=== PATIENT | male | born 1970 | race Caucasian/White ===

== ENCOUNTER 2017-12-23 08:06 | Inpatient (IN) | payer OTHER ==
[2017-12-23 10:49] VITALS: BMI 44.7
[2017-12-23] MEDS ORDERED: HEPARIN SODIUM,PORCINE 5,000 UNIT/ML 1 ML VIAL IV PRN (11:10)
[2017-12-23] MEDS ORDERED: HEPARIN SODIUM,PORCINE 5,000 UNIT/ML 1 ML VIAL IV ONE (11:10)
[2017-12-23 11:29] LABS: Basophils % (A) 0 %; Eosinophils # (A) 0.1 k/uL (0-0.7); Eosinophils % (A) 1 %; HCT 51.7 % (39.0-53.0); HGB 16.2 gm/dL (13.0-17.5); Lymphocytes # (A) 2.5 k/uL (1.0-4.8); Lymphocytes % (A) 24 %; MCH 27.7 pg (25.0-35.0); MCHC 31.4 g/dL (31.0-37.0); MCV 88.2 fL (80.0-100.0); Mean Platelet Volume 7.5; Monocytes # (A) 0.6 k/uL (0-1.0); Monocytes % (A) 5 %; Neutrophils % (A) 68 %; Platelet Count 250 k/uL (150-450); RBC 5.86 m/uL (4.30-5.90); RDW 13.9 % (11.5-15.5); WBC 10.3 k/uL (3.8-10.6)
[2017-12-23 11:45] LABS: INR 1.1 (<1.2); Partial Thromboplastin Time 38.9 sec (22.0-30.0); Prothrombin Time 10.4 sec (9.0-12.0)
[2017-12-23] MEDS ORDERED: ALPRAZolam 0.25 MG TAB PO PRN (12:13)
--- NOTE | 2017-12-23 13:26 | CONS ---
CONSULTATION This is a 47-year-old gentleman who sees Dr. Julio Ruiz as an outpatient but has not been consistent. He presented to [facility], brought in by his girlfriend because of having discomfort in the chest while they were having sex last night. After arrival he was completely pain-free. Apparently he had some exertional chest discomfort a couple of days ago when he was walking to the mailbox. He leads a reasonably active lifestyle and he tells me that he has been under stress; for the past 5 days on and off he has been having some nondescript sharp pains that come and go, not consistent related to physical activity. However, last night's pain seemed to persist, so his girlfriend brought him to the emergency room, but he has not had any recurrence of pain. He is comfortable resting at the time of my evaluation. PAST MEDICAL HISTORY: He has no history of any hypertension, diabetes, or any other major medical problems. He does not have any history of prior surgeries. MEDICATIONS: None. ALLERGIES: NO KNOWN DRUG ALLERGIES. SOCIAL HISTORY: Patient smokes marijuana regularly but does not smoke cigarettes and does not consume alcohol. PHYSICAL EXAMINATION: Blood pressure is 130/78. Pulse rate is 72 per minute, regular. HEENT: Unremarkable. Fundus was not examined by me. NECK: Supple. There is no JVD. I do not hear a carotid bruit. There is no thyromegaly. Heart exam reveals S1, S2 heard normally without a rub, murmur or gallop. Lungs are clear. ABDOMEN: Soft, nontender. Lower extremities reveal palpable pulses. No edema. Central nervous system is normal. EKG was performed at [facility] and also another one here. Both of these are unremarkable. Initial troponin at [facility] was 0.09, a repeat 1.1, and now again here in our lab it is 0.569. IMPRESSION: 1. Chest pain syndrome; cannot exclude this being angina. However, patient is pain- free and comfortable. 2. History of marijuana abuse. 3. Obesity. RECOMMENDATIONS: I am recommending that we will perform additional troponins today, continue IV heparin, beta lilia, aspirin and also perform an echocardiogram today. I am recommending a fasting lipid profile as well. We will initiate him on aspirin, atorvastatin and beta lilia. Based on clinical course, I will make further recommendations. Patient may have coronary angiography or a stress test, depending on clinical course. I discussed my thoughts in detail with the patient, his sister, mother and girlfriend. We will observe him very closely. Thank you very much for the consult. VERÓNICA / ELSIE: [id number] /
[2017-12-23] MEDS: SODIUM CHLORIDE 0.9% 1,000 ML IV SCH (14:10)
[2017-12-23] MEDS: HEPARIN SOD,PORK IN 0.45% NACL 25,000 UNIT in 0.45% NACL 1 500ML.BAG IV SCH (14:11)
[2017-12-23] MEDS: ATORVASTATIN 20 MG TAB PO SCH (14:13)
[2017-12-23] MEDS ORDERED: LORazepam 2 MG/ML INJ IV PRN (14:17)
[2017-12-23] MEDS ORDERED: ALPRAZolam 0.5 MG TAB PO STA (14:35)
[2017-12-23] MEDS ORDERED: TEMAZEPAM 15 MG CAP PO PRN (14:39)
[2017-12-23 16:02] LABS: ALT 74 U/L (21-72); AST 64 U/L (17-59); Albumin 4.7 g/dL (3.5-5.0); Alkaline Phosphatase 64 U/L (38-126); Anion Gap 11 mmol/L; Blood Urea Nitrogen 21 mg/dL (9-20); Calcium 10.1 mg/dL (8.4-10.2); Carbon Dioxide 24 mmol/L (22-30); Chloride 106 mmol/L (98-107); Glucose 120 mg/dL (74-99); Potassium 4.8 mmol/L (3.5-5.1); Sodium 141 mmol/L (137-145); Total Bilirubin 0.6 mg/dL (0.2-1.3); Total Protein 7.6 g/dL (6.3-8.2)
--- NOTE | 2017-12-23 16:17 | HP ---
HISTORY AND PHYSICAL DATE OF SERVICE: 12/23/2017 CHIEF COMPLAINT: Chest pain. HISTORY OF PRESENT ILLNESS: This 47-year-old gentleman with a past medical history of hypertension, hyperlipidemia, history of anxiety and depression, history of THC, being followed by Dr. Julio Ruiz in the outpatient setting, presented to [facility]. The patient had significant chest pain which was felt in the right side of the chest, 10/10 in intensity, but subsequently moved to the center part of the area. The pain also happened when a couple of days ago the patient was walking to the mailroom and the patient went to [facility] and subsequently was sent to [facility] and admitted for further evaluation and treatment. Cardiology evaluation by Dr. Powell is in progress at this time. Troponin was found to be 0.569. There is no history of any fever, rigor or chills. PAST MEDICAL HISTORY: 1. Hypertension. 2. Hyperlipidemia. MEDICATIONS PRIOR TO ADMISSION: None. ALLERGIES: NONE. FAMILY HISTORY: No history of heart disease or strokes in the family. SOCIAL HISTORY: History of THC. Otherwise no history of smoking. REVIEW OF SYSTEMS: ENT: No diminished hearing. No diminished vision. CARDIOVASCULAR SYSTEM: As mentioned earlier. RESPIRATORY SYSTEM: As mentioned earlier. GI: As mentioned earlier. : No dysuria or retention. NERVOUS SYSTEM: No numbness, weakness. ALLERGY/IMMUNOLOGY: No asthma, hayfever. MUSCULOSKELETAL: As mentioned earlier. HEMATOLOGY/ONCOLOGY: No history of anemia. ENDOCRINE: No history of diabetes, hypothyroidism. CONSTITUTIONAL: As mentioned earlier. DERMATOLOGY: Negative. RHEUMATOLOGY: Negative. PSYCHIATRY: As mentioned earlier. PHYSICAL EXAMINATION: Patient alert and oriented x3. Pulse 85, blood pressure 158/89, respiration 16, temperature 98.2, pulse ox 94% on room air. HEENT: Conjunctivae normal. Oral mucosa moist. NECK: No jugular venous distention. No carotid bruit. No lymph node enlargement. CARDIOVASCULAR SYSTEM: S1, S2 muffled. RESPIRATORY SYSTEM: Breath sounds diminished at the bases. No rhonchi. No crackles. ABDOMEN: Soft, obese, nontender. No mass palpable. LEGS: No edema. No swelling. NERVOUS SYSTEM: Higher functions as mentioned earlier. Moves all 4 limbs. No focal motor or sensory deficit. LYMPHATICS: No lymph node palpable in neck, axillae or groin. SKIN: No ulcer, rash, bleeding. LAB INVESTIGATIONS: Lab investigations at this time show CBC within normal limits. INR 1.1. Troponins are noted. EKG shows no acute changes. ASSESSMENT: 1. Chest pain, possibly acute baf-BM-thddsba-elevation myocardial infarction with troponin 0.569. 2. History of depression and anxiety. 3. Hypertension. 4. Hyperlipidemia. 5. History of tetrahydrocannabinol. RECOMMENDATIONS AND DISCUSSION: In this 47-year-old gentleman who presented with multiple medical issues, we will monitor the patient closely, continue the current medications, continue with symptomatic treatment. Otherwise at this time I would recommend unstable angina protocol, IV heparin, beta blockers, antiplatelet agents. Resume the home medications. I would also recommend Xanax p.r.n., which the patient was taking from his own psychiatrist. Cardiology consultation. Two-D echo has been ordered. Complete set of troponins. Guarded prognosis because of multiple complex medical issues. Further recommendations to follow. Discussed with the patient and family at length, who understand and agree. A copy of this dictation is being forwarded to Dr. Ruiz, who is the primary physician. MMRACHELL / JEDN: [id number] /
--- NOTE | 2017-12-23 16:20 | XR ---
EXAMINATION TYPE: XR chest 1V portable DATE OF EXAM: 12/23/2017 Comparison: None Clinical History: 47-year-old male with shortness of breath, chf Findings: Large patient body habitus and portable exam limited assessment. Heart upper limits of normal in size . Diffuse interstitial prominence. No nehal consolidation or pleural effusion. Impression: Limited portable exam and large patient body habitus. There is interstitial prominence which may refl ect mild pulmonary vascular congestion in the setting of fluid overload. No nehal consolidation.
[2017-12-23] MEDS: METOPROLOL TARTRATE 25 MG TAB PO SCH (20:45)
[2017-12-23] MEDS: ALPRAZolam 0.5 MG TAB PO PRN (20:45)
[2017-12-24] MEDS: SODIUM CHLORIDE 0.9% 1,000 ML IV SCH ×3 (00:35→17:27)
[2017-12-24 03:41] LABS: Basophils # (A) 0.1 k/uL (0-0.2); Basophils % (A) 1 %; Eosinophils # (A) 0.2 k/uL (0-0.7); Eosinophils % (A) 2 %; HCT 49.8 % (39.0-53.0); HGB 16.3 gm/dL (13.0-17.5); Lymphocytes # (A) 4.2 k/uL (1.0-4.8); Lymphocytes % (A) 40 %; MCH 28.7 pg (25.0-35.0); MCHC 32.7 g/dL (31.0-37.0); MCV 87.8 fL (80.0-100.0); Mean Platelet Volume 7.7; Monocytes # (A) 0.6 k/uL (0-1.0); Monocytes % (A) 6 %; Neutrophils # (A) 5.2 k/uL (1.3-7.7); Neutrophils % (A) 49 %; Platelet Count 228 k/uL (150-450); RBC 5.68 m/uL (4.30-5.90); RDW 13.8 % (11.5-15.5); WBC 10.6 k/uL (3.8-10.6)
[2017-12-24 04:00] LABS: Anion Gap 10 mmol/L; Blood Urea Nitrogen 18 mg/dL (9-20); Calcium 9.7 mg/dL (8.4-10.2); Carbon Dioxide 28 mmol/L (22-30); Chloride 104 mmol/L (98-107); Cholesterol 231 mg/dL (<200); Glucose 114 mg/dL (74-99); HDL Cholesterol 37 mg/dL (40-60); Potassium 4.6 mmol/L (3.5-5.1); Sodium 142 mmol/L (137-145); Triglycerides 418 mg/dL (<150)
[2017-12-24] MEDS ORDERED: ASPIRIN 81 MG PO SCH (09:00)
[2017-12-24] MEDS ORDERED: ALPRAZolam 0.5 MG TAB PO SCH (09:00)
--- NOTE | 2017-12-24 09:12 | ECHOF ---
Referral Reason:chest pain MEASUREMENTS -------- HEIGHT: 188.0 cm WEIGHT: 157.8 kg BP: 137/83 RVIDd: 3.4 cm (< 3.3) IVSd: 1.4 cm (0.6 - 1.1) LVIDd: 4.6 cm (3.9 - 5.3) LVPWd: 1.4 cm (0.6 - 1.1) IVSs: 1.8 cm LVIDs: 3.3 cm LVPWs: 1.5 cm LA Diam: 3.9 cm (2.7 - 3.8) LAESV Index (A-L): 21.82 ml/m Ao Diam: 3.8 cm (2.0 - 3.7) AV Cusp: 2.2 cm (1.5 - 2.6) MV EXCURSION: 18.438 mm (> 18.000) MV EF SLOPE: 108 mm/s (70 - 150) EPSS: 0.4 cm MV E Anthony: 0.80 m/s MV DecT: 226 ms MV A Anthony: 0.66 m/s MV E/A Ratio: 1.22 FINDINGS -------- Sinus rhythm. This was a technically difficult study with suboptimal views. The left ventricular size is normal. There is moderate concentric left ventricular hypertrophy. O verall left ventricular systolic function is normal with, an EF between 55 - 60 %. The right ventricle is mildly enlarged. Normal LA size by volume 22+/-6 ml/m2. The right atrium is normal in size. There is mild aortic valve sclerosis. Mild mitral annular calcification present. The tricuspid valve appears structurally normal. The pulmonic valve was not well visualized. The aortic root is dilated measuring 3.8cm. Normal inferior vena cava with normal inspiratory collapse consistent with estimated right atrial pre ssure of 5 mmHg. There is no pericardial effusion. CONCLUSIONS -------- 1. Sinus rhythm. 2. This was a technically difficult study with suboptimal views. 3. The left ventricular size is normal. 4. There is moderate concentric left ventricular hypertrophy. 5. Overall left ventricular systolic function is normal with, an EF between 55 - 60 %. 6. The right ventricle is mildly enlarged. 7. Normal LA size by volume 22+/-6 ml/m2. 8. The right atrium is normal in size. 9. There is mild aortic valve sclerosis. 10. Mild mitral annular calcification present. 11. The tricuspid valve appears structurally normal. 12. The pulmonic valve was not well visualized. 13. The aortic root is dilated measuring 3.8cm. 14. Normal inferior vena cava with normal inspiratory collapse consistent with estimated right atrial pressure of 5 mmHg. 15. There is no pericardial effusion. DIAL MAKER: Tegan Sanders RDCS
[2017-12-24] MEDS: ATORVASTATIN 20 MG TAB PO SCH (09:19)
[2017-12-24] MEDS: METOPROLOL TARTRATE 25 MG TAB PO SCH ×2 (09:19→20:58)
[2017-12-24] MEDS: HEPARIN SOD,PORK IN 0.45% NACL 25,000 UNIT in 0.45% NACL 1 500ML.BAG IV SCH (11:52)
[2017-12-24] MEDS ORDERED: LORazepam 2 MG/ML INJ IV STA (12:34)
[2017-12-24] MEDS ORDERED: ASPIRIN 325 MG TAB PO STA (15:03)
[2017-12-24] MEDS ORDERED: ATORVASTATIN 80 MG TAB PO STA (15:03)
[2017-12-24] MEDS ORDERED: LIDOCAINE 2% INJ 20 MG/ML (20 ML MDV) ONE (15:21)
[2017-12-24] MEDS ORDERED: MIDAZOLAM 2 MG/2 ML VIAL ONE (15:21)
[2017-12-24] MEDS ORDERED: VERAPAMIL 2.5 MG/ML 2 ML AMP ONE (15:21)
[2017-12-24] MEDS ORDERED: diphenhydrAMINE 50 MG/ML 1 ML VIAL ONE (15:23)
[2017-12-24] MEDS ORDERED: MIDAZOLAM 2 MG/2 ML VIAL IV ONE (15:25)
[2017-12-24] MEDS ORDERED: diphenhydrAMINE 50 MG/ML 1 ML VIAL IVP ONE (15:26)
[2017-12-24] MEDS ORDERED: HEPARIN SODIUM 1,000 UN/ML (10ML VL) ONE (15:29)
[2017-12-24] MEDS ORDERED: IV FLUID CONTINUATION 1,000 ML IV ONE (15:30)
[2017-12-24] MEDS: LIDOCAINE 2% INJ 20 MG/ML SQ ONE ×2 (15:40→16:22)
[2017-12-24] MEDS: VERAPAMIL SYRINGE (5 MG/10 ML) INTRAARTER ONE ×2 (15:43→16:44)
[2017-12-24] MEDS ORDERED: HYDROmorphone 2 MG/ML 1 ML SYRINGE ONE (15:44)
[2017-12-24] MEDS ORDERED: HYDROmorphone 2 MG/ML 1 ML SYRINGE IV ONE (15:45)
[2017-12-24] MEDS ORDERED: IOHEXOL 350 MG/ML 125ML BOTTLE INJ ONE (16:45)
--- NOTE | 2017-12-24 16:46 | PN ---
PROGRESS NOTE Mr. Allen is in sinus rhythm comfortable. Troponin shows modest elevation. He had chest pain again yesterday and again this morning. I am advising cardiac cath. Talked to the patient and his girlfriend. Both of them understand the rationale, risks, benefits, options and wished to proceed. Patient has a lot of anxiety. I will give him some Ativan and I offered to do a stress test instead of cardiac cath but he wishes to proceed with cardiac cath. Vital signs are stable. Physical examination is unchanged. We will proceed with cardiac catheterization today. All risks, benefits, options were discussed at length. MMODL / IJN: [id number] /
[2017-12-24] MEDS ORDERED: RX INFO: IV CONTRAST WAS GIVEN 1 EACH MISC MISCELLANE PRN (16:47)
[2017-12-24] MEDS: ALPRAZolam 0.5 MG TAB PO PRN (17:24)
--- NOTE | 2017-12-24 17:37 | LTR ---
DATE OF SERVICE: 12/24/[address] Ruiz: Thank you very much for the opportunity to participate in the care of Mr. Eduardo Allen. Please find enclosed my cardiac catheterization report for your records. He has about a 45-50% mid LAD and mid RCA disease. RCA is dominant. Aggressive medical therapy with risk factor modification is advised. He was also advised to refrain from smoking marijuana. Thank you for your referral. Please call for questions. With kind regards, Sincerely yours, Alek Powell MD. VERÓNICA / ELSIE: [id number] /
--- NOTE | 2017-12-24 17:37 | CC ---
CARDIAC CATHETERIZATION REPORT DATE OF SERVICE: 12/24/17 PROCEDURE PERFORMED: Left heart catheterization and coronary angiography. PERFORMED BY: Dr. Veronica Powell. ANESTHESIA: Moderate conscious sedation time was 56 minutes. Patient was monitored closely as well as oxygen saturation was monitored closely. He received a combination of Versed and Dilaudid. CLINICAL INFORMATION: Mr. Eduardo Wilson is an obese a gentleman without significant past medical history, presented to the emergency room at [facility] with chest pain while he was having sex and subsequently had elevated troponin and was transferred here. He did not have any recurrence of chest pain. He appeared to be quite comfortable after arrival. However, yesterday again he had another episode of chest pain with a troponin elevation of about 0.05. In view of this, he was advised coronary angiography. Echocardiogram revealed normal left ventricular size and systolic function. The patient is morbidly obese, has hyperlipidemia and also smokes marijuana regularly. PROCEDURE NOTE: I initially attempted from the right radial approach, but there was extreme tortuosity. I was able to get selective coronary angiography of the RCA and also LV pressures but I could not get a selective angiography of left coronary artery and therefore I went and performed the procedure again from the right femoral approach. From the right radial approach, was performed uneventfully. I used a right Agnieszka catheter for selective coronary angiography of the right coronary artery. There was extreme tortuosity and ascending aorta was at a very a acute angle as it came off from the left ventricle and entry to the ascending aorta was quite difficult. I used a Agnieszka catheter as an Ultimata 1 catheter without much success. LV pressures were obtained using the Ultimata 1 catheter. LV gram was not performed. Under local anesthesia and strict aseptic precautions from the right femoral approach, a 6-Palauan introducer was placed and using a standard left Agnieszka catheter I performed selective coronary angiography. The sheath in the right groin was taken out and Angio-Seal device used to secure hemostasis. For the right radial artery a TR band was applied as per protocol. The pulse was good and saturation in the fingers of the right hand was 96%. CARDIAC CATHETERIZATION FINDINGS: The left ventricle end-diastolic pressure was about 14 mmHg and there was no gradient across aortic valve. CORONARY ANGIOGRAPHY FINDINGS: Right coronary artery: Technically a very dominant vessel in the proximal portion has no significant disease in the middle 1/3. There is diffuse area of disease and then there is an acute curve. After the acute curve there is about a 50% lesion and the caliber improves and distally bifurcates into a large PDA and PLV. The mid segment in the RCA which is a dominant vessel has diffuse disease. The worse scenario is about 50%. There is some calcification noted. Left main coronary artery: This is a long vessel free of significant disease that bifurcates into LAD and circumflex. Left main itself is free of significant disease. Left posterior circumflex coronary artery is a small nondominant vessel gives off a single obtuse marginal runs in the AV groove has no significant disease and minor irregularities. Left anterior descending coronary artery: This is a good caliber vessel extends along the antral wall, giving off septal and diagonal branches. In the midportion, there is about a 45% stenosis, smooth narrowing, focal location noted after which the caliber of the vessel improves and then the vessel in the midportion kind of becomes smaller and gives off a diagonal branch and gives and has minor irregularities. The distal LAD in its distal 1/4 is diffusely diseased. The diagonal branches are free of significant disease. LAD does not seem to quite reach all the way to the apex or at least has diffuse disease in distal 1/4. Mid LAD has a 50% lesion and beyond it there is another smooth narrowing as well. LAD, therefore diffusely diseased vessel with moderate areas of narrowing, but no critical stenosis is detected. Left ventriculogram: This was not performed. FINAL IMPRESSION: This patient has a right dominant system, normal filling pressures. There is a 50% mid RCA stenosis with diffuse disease in the mid segment. A very dominant right coronary artery. The LAD has a mid lesion of 50%, but beyond the middle 1/3, the distal 1/4 of the vessel has diffuse disease and small for disease for diagonal branches. Circumflex is small and nondominant, has no significant disease. RECOMMENDATIONS: I am recommending aggressive medical therapy with the LDL cholesterol goal of under 75, refrain from marijuana, weight reduction, dietary discretion and exercise. Discussed my thoughts in detail with the patient and his girlfriend. He will be discharged tomorrow if he remains stable and will be watched closely. MMODL / IJN: [id number] /
--- NOTE | 2017-12-24 21:30 | PN ---
PROGRESS NOTE DATE OF SERVICE: 12/24/2017. HISTORY: This 47-year-old gentleman who was admitted with chest pain and possible acute non ST elevation myocardial infarction, had a cardiac cath by Dr. Veronica Powell today. The cardiac cath showed a 50% mid RCA stenosis with diffuse disease and the LAD has mid lesion of 50%. Aggressive medical treatment was recommended by Cardiology. No chest pain. No palpitations. No fever. EXAM: On exam, alert, oriented x3. Pulse 70, blood pressure 130/70, respirations 18, temperature 97.2, pulse ox 99% on room air. HEENT: Conjunctivae normal. NECK: Supple. CARDIOVASCULAR: S1 and S2 muffled. LUNGS: Breath sounds diminished at the bases. No rhonchi. No crackles. ABDOMEN: Soft, nontender. No mass. LEGS: No edema. NERVOUS SYSTEM: No focal deficits. LABS: CBC within normal limits. APTT. Glucose 114. Cholesterol 231. ASSESSMENT: 1. Chest pain, acute non ST elevation myocardial infarction with troponin 0.56, status post cardiac catheterization showing mild to moderate coronary artery disease. 2. Hyperlipidemia. 3. Hypertriglyceridemia. 4. History of depression, anxiety. 5. Hypertension. 6. History of THC. RECOMMENDATIONS: Recommend to continue current medications and optimize medical treatment. Continue with antiplatelet agents. Continue with high-dose Lipitor otherwise I would also recommend Tricor also. Prognosis guarded because of multiple complex medical issues. Further recommendations to follow. MMODL / IJN: [id number] / MTDD
[2017-12-24] MEDS ORDERED: HYDROcodone/APAP 7.5-325MG 1 EACH TAB PO PRN (22:03)
[2017-12-24 22:15] VITALS: BP 125/71; PULSE 78; RESP 19; TEMP 98.5
[2017-12-25] MEDS ORDERED: FENOFIBRATE 160 MG TAB PO SCH (09:00)
[2017-12-25] MEDS ORDERED: ATORVASTATIN 40 MG TAB PO SCH (09:00)
--- NOTE | 2017-12-27 06:55 | DS ---
DISCHARGE SUMMARY FINAL DIAGNOSES: 1. Chest pain, acute non ST-segment elevation myocardial infarction with troponin 0.5, status post cardiac catheterization, [id number] coronary artery disease. 2. Hypertension. 3. Hyperlipidemia. 4. Hypertriglyceridemia. 5. History of depression, anxiety. DISCHARGE DISPOSITION: Patient left the hospital AGAINST MEDICAL ADVICE. HISTORY OF PRESENT ILLNESS: This 47-year-old gentleman with past medical history of multiple medical problems was admitted with chest pain. Cardiology performed cardiac catheterization with mild-to- moderate coronary artery disease. Patient treated medically, but however the patient left the hospital AGAINST MEDICAL ADVICE. The prognosis remains guarded. Please refer to the multiple notes including Cardiology notes for further information. MMODL / IJN: [id number] /
== END 2017-12-24 22:57 | disposition left against medical advice (07) | DRG 282 ==
LOC: 6SEL 10:15
PROVIDERS: ADMIT Hospitalist; ATTEND Hospitalist
PROC: B2111ZZ Fluoroscopy of Multiple Coronary Arteries using Low Osmolar Contrast (ICD-10-PCS; 2017-12-24)
PROC: 4A023N7 Measurement of Cardiac Sampling and Pressure, Left Heart, Percutaneous Approach (ICD-10-PCS; principal; 2017-12-24 15:00)
DX: I21.4 Non-ST elevation (NSTEMI) myocardial infarction (principal); E66.9 Obesity, unspecified; E78.1 Pure hyperglyceridemia; E78.5 Hyperlipidemia, unspecified; F12.90 Cannabis use, unspecified, uncomplicated; F41.9 Anxiety disorder, unspecified; I10 Essential (primary) hypertension; I25.10 Atherosclerotic heart disease of native coronary artery without angina pectoris; F32.9 Major depressive disorder, single episode, unspecified
CPT/HCPCS: 71045; 80048; 80053; 80061; 84484; 85025; 85610; 85730; 93306; 93458

== ENCOUNTER 2023-08-23 13:20 | Emergency (ER) | payer OTHER ==
[2023-08-23] MEDS ORDERED: LORazepam 2 MG/ML INJ IM STA (13:34)
[2023-08-23] MEDS ORDERED: ZIPRASIDONE 20 MG VIAL IM STA (13:35)
[2023-08-23 13:46] VITALS: RESP 16
--- NOTE | 2023-08-23 14:09 | ED ---
General Adult HPI - General Source: patient, police, RN notes reviewed, old records reviewed Mode of arrival: EMS Limitations: altered mental status <Julio Raphael - Last Filed: 08/23/23 14:06> <Luis Galvin - Last Filed: 08/29/23 07:06> - General Chief complaint: Psychiatric Symptoms Stated complaint: Mental Health,Petition Time Seen by Provider: 08/23/23 13:24 - History of Present Illness Initial comments: 53-year-old male presenting for psychiatric evaluation per patient presents with local police, he has been petitioned for suicidal statements. Patient is quite aggressive and required restraint during transport. He has history of mental illness including anxiety, depression, PTSD. (Julio Raphael) - Related Data Home Medications Medication Instructions Recorded Confirmed ALPRAZolam [Xanax] 0.5 mg PO BID@0800,2100 08/23/23 08/23/23 Atorvastatin Calcium [Lipitor] 80 mg PO HS 08/23/23 08/23/23 DULoxetine HCL [Cymbalta] 60 mg PO DAILY@0800 08/23/23 08/23/23 Losartan Potassium 100 mg PO DAILY@0800 08/23/23 08/23/23 Metoprolol Tartrate [Lopressor] 25 mg PO HS 08/23/23 08/23/23 Metoprolol Tartrate [Lopressor] 50 mg PO DAILY@0800 08/23/23 08/23/23 Mirtazapine [Remeron] 7.5 mg PO HS@2100 08/23/23 08/23/23 Oxybutynin ER [Ditropan XL] 10 mg PO DAILY@0800 08/23/23 08/23/23 Tamsulosin HCl [Flomax] 0.4 mg PO HS 08/23/23 08/23/23 busPIRone HCL 15 mg PO BID@0800,2100 08/23/23 08/23/23 Allergies Allergy/AdvReac Type Severity Reaction Status Date / Time No Known Allergies Allergy Verified 08/23/23 16:40 Review of Systems ROS Other: All systems not noted in ROS Statement are negative. <Julio Raphael - Last Filed: 08/23/23 14:06> ROS Other: All systems not noted in ROS Statement are negative. <Luis Galvin - Last Filed: 08/29/23 07:06> ROS Statement: Those systems with pertinent positive or pertinent negative responses have been documented in the HPI. Past Medical History Past Medical History: Chest Pain / Angina, Hyperlipidemia, Hypertension History of Any Multi-Drug Resistant Organisms: None Reported Past Surgical History: No Surgical Hx Reported Past Anesthesia/Blood Transfusion Reactions: No Reported Reaction Past Psychological History: Anxiety, Depression Past Drug Use History: Marijuana <Julio Raphael - Last Filed: 08/23/23 14:06> General Exam Limitations: altered mental status General appearance: alert, anxious Head exam: Present: atraumatic, normocephalic Eye exam: Present: normal appearance, PERRL ENT exam: Present: normal exam Neck exam: Present: normal inspection Respiratory exam: Present: normal lung sounds bilaterally. Absent: respiratory distress, wheezes Cardiovascular Exam: Present: regular rate, normal rhythm GI/Abdominal exam: Present: soft. Absent: distended, tenderness, guarding Extremities exam: Present: normal inspection, normal capillary refill Neurological exam: Present: alert, oriented X3 Psychiatric exam: Present: agitated, anxious, suicidal ideation Skin exam: Present: warm, dry <Julio Raphael - Last Filed: 08/23/23 14:06> Course <Julio Raphael - Last Filed: 08/23/23 14:06> Vital Signs 08/23/23 08/23/23 13:24 17:45 Temperature 98.9 F Pulse Rate 89 69 Respiratory 16 16 Rate Blood Pressure 139/78 O2 Sat by Pulse 100 97 Oximetry - Reevaluation(s) Reevaluation #1: 08/23/23 14:07 Patient cleared for EPS (Julio Raphael) Medical Decision Making <Julio Raphael - Last Filed: 08/23/23 14:06> <Luis Galvin - Last Filed: 08/29/23 07:06> - Medical Decision Making Was pt. sent in by a medical professional or institution (, PA, PROJECT CONTROL OFFICER, urgent care, hospital, or senior living...) When possible be specific @ -No Did you speak to anyone other than the patient for history (EMS, parent, family, police, friend...)? What history was obtained from this source @ Local police Did you review nursing and triage notes (agree or disagree)? Why? @ -I reviewed and agree with nursing and triage notes Were old charts reviewed (outside hosp., previous admission, EMS record, old EKG, old radiological studies, urgent care reports/EKG's, senior living records)? Report findings @ -No old charts were reviewed Differential Diagnosis (chest pain, altered mental status, abdominal pain women, abdominal pain men, vaginal bleeding, weakness, fever, dyspnea, syncope, headache, dizziness, GI bleed, back pain, seizure, CVA, palpatations, mental health, musculoskeletal)? @ -Differential Mental Health Depression, anxiety, bipolar, psychosis, schizophrenia, borderline personality, situational depression, adjustment disorder, behavioral disorder, brain tumor, malingering, substance abuse, encephalopathy, medication reaction, dementia, hypothyroidism, degenerative neurologic disorder, lupus.... This is not meant to be all-inclusive list EKG interpreted by me (3pts min.). @ -As above X-rays interpreted by me (1pt min.). @ -None done CT interpreted by me (1pt min.). @ -None done U/S interpreted by me (1pt. min.). @ -None done What testing was considered but not performed or refused? (CT, X-rays, U/S, labs)? Why? @ -None What meds were considered but not given or refused? Why? @ -None Did you discuss the management of the patient with other professionals (professionals i.e. , PA, PROJECT CONTROL OFFICER, lab, RT, psych nurse, long term care social worker, medical csr, teacher, retirement officer, counseling case manager)? Give summary @ -No Was smoking cessation discussed for >3mins.? @ -No Was critical care preformed (if so, how long)? @ -No Were there social determinants of health that impacted care today? How? (Homelessness, low income, unemployed, alcoholism, drug addiction, transportat ion, low edu. Level, literacy, decrease access to med. care, fpc, rehab)? @ -No Was there de-escalation of care discussed even if they declined (Discuss DNR or withdrawal of care, Hospice)? DNR status @ -No What co-morbidities impacted this encounter? (DM, HTN, Smoking, COPD, CAD, Cancer, CVA, ARF, Chemo, Hep., AIDS, mental health diagnosis, sleep apnea, morbid obesity)? @ -[Anxiety, depression Was patient admitted / discharged? Hospital course, mention meds given and route, prescriptions, significant lab abnormalities, going to OR and other pertinent info. @ -[Patient's care is signed out to Dr. Galvin at shift change awaiting EPS evaluation (Julio Raphael) Was patient admitted / discharged? Hospital course, mention meds given and route, prescriptions, significant lab abnormalities, going to OR and other pertinent info. @ -[I receive this patient as sign out pending the EPS evaluation. They did staff case with psychiatrist, formulate a safety plan, and the patient agreeable. Return parameters discussed Undiagnosed new problem with uncertain prognosis? @ -[No] Drug Therapy requiring intensive monitoring for toxicity (Heparin, Nitro, Insulin, Cardizem)? @ -[No] Were any procedures done? @ -[No] Diagnosis/symptom? @ -[Acute mood disorder/reaction disorder Acute, or Chronic, or Acute on Chronic? @ -[Acute Uncomplicated (without systemic symptoms) or Complicated (systemic symptoms)? @ -[Uncomplicated Side effects of treatment? @ -[No] Exacerbation, Progression, or Severe Exacerbation? @ -[No] Poses a threat to life or bodily function? How? (Chest pain, [place], [place], pneumonia, PE, COPD, DKA, ARF, appy, cholecystitis, CVA, Diverticulitis, Homicidal, April cidal, threat to staff... and all critical care pts) @ -[Low likelihood (Luis Galvin) Disposition <Julio Raphael - Last Filed: 08/23/23 14:06> Is patient prescribed a controlled substance at d/c from ED?: No <Luis Galvin - Last Filed: 08/29/23 07:06> Clinical Impression: Adjustment reaction of adult life Disposition: HOME SELF-CARE Condition: Good Referrals: Julio Ruiz MD [Primary Care Provider] - 1-2 days
[2023-08-23 18:02] VITALS: BP 139/78; PULSE 69; TEMP 98.9
== END 2023-08-23 17:56 | disposition home or self-care (01) ==
LOC: EC 13:20
DX: F43.20 Adjustment disorder, unspecified (principal); I10 Essential (primary) hypertension; E78.5 Hyperlipidemia, unspecified; F32.A Depression, unspecified; F41.9 Anxiety disorder, unspecified; F12.90 Cannabis use, unspecified, uncomplicated; Z79.899 Other long term (current) drug therapy
CPT/HCPCS: 82075; 96372 ×2; 99284; J2060; J3486

== ENCOUNTER 2023-09-07 05:08 | Emergency (ER) | payer OTHER ==
[2023-09-07 05:29] VITALS: RESP 18
--- NOTE | 2023-09-07 05:38 | ED ---
General Adult HPI - General Chief complaint: Chest Pain Stated complaint: Chest pain,high blood pressure Source: patient Mode of arrival: ambulatory Limitations: no limitations - History of Present Illness Initial comments: Dictation was produced using [employer] dictation software. please excuse any grammatical, word or spelling errors. Chief Complaint: 53-year-old male with past medical history of psychiatric disease homelessness presents with chest pain History of Present Illness: Patient is a 53-year-old male presents to emergency room chest pain. Sporadic chest pain for the last 1-2 days. Patient is homeless and is staying at the local homeless fpc. He has been having her shirt to his chest. Patient's history of CA. Patient also has a history of anxiety and psychiatric disorder. Patient denies any radiation of symptoms on his arm. Denies any diaphoresis or nausea. Patient is worried days having a heart attack again. The ROS documented in this emergency department record has been reviewed and confirmed by me. Those systems with pertinent positive or negative responses have been documented in the HPI. All other systems are other negative and/or noncontributory. - Related Data Home Medications Medication Instructions Recorded Confirmed ALPRAZolam [Xanax] 0.5 mg PO BID@0800,2100 08/23/23 08/23/23 Atorvastatin Calcium [Lipitor] 80 mg PO HS 08/23/23 08/23/23 DULoxetine HCL [Cymbalta] 60 mg PO DAILY@0800 08/23/23 08/23/23 Losartan Potassium 100 mg PO DAILY@0800 08/23/23 08/23/23 Metoprolol Tartrate [Lopressor] 25 mg PO HS 08/23/23 08/23/23 Metoprolol Tartrate [Lopressor] 50 mg PO DAILY@0800 08/23/23 08/23/23 Mirtazapine [Remeron] 7.5 mg PO HS@2100 08/23/23 08/23/23 Oxybutynin ER [Ditropan XL] 10 mg PO DAILY@0800 08/23/23 08/23/23 Tamsulosin HCl [Flomax] 0.4 mg PO HS 08/23/23 08/23/23 busPIRone HCL 15 mg PO BID@0800,2100 08/23/23 08/23/23 Allergies Allergy/AdvReac Type Severity Reaction Status Date / Time No Known Allergies Allergy Verified 09/07/23 05:14 Review of Systems ROS Statement: Those systems with pertinent positive or pertinent negative responses have been documented in the HPI. ROS Other: All systems not noted in ROS Statement are negative. Past Medical History Past Medical History: Chest Pain / Angina, Hyperlipidemia, Hypertension History of Any Multi-Drug Resistant Organisms: None Reported Past Surgical History: No Surgical Hx Reported Past Anesthesia/Blood Transfusion Reactions: No Reported Reaction Past Psychological History: Anxiety, Depression Smoking Status: Never smoker Past Alcohol Use History: None Reported Past Drug Use History: None Reported, Marijuana General Exam - General Exam Comments Initial Comments: PHYSICAL EXAM: General Impression: Alert and oriented x3, not in acute distress HEENT: Normocephalic atraumatic, extra-ocular movements intact, pupils equal and reactive to light bilaterally, mucous membranes moist. Cardiovascular: Heart regular rate and rhythm Chest: Able to complete full sentences, no retractions, no tachypnea Abdomen: abdomen soft, non-tender, non-distended, no organomegaly Musculoskeletal: Pulses present and equal in all extremities, no peripheral edema Motor: no focal deficits noted Neurological: CN II-XII grossly intact, no focal motor or sensory deficits noted Skin: Intact with no visualized rashes Psych: Anxious Limitations: no limitations Course Vital Signs 09/07/23 05:14 Temperature 98 F Pulse Rate 105 H Respiratory 18 Rate Blood Pressure 132/79 O2 Sat by Pulse 98 Oximetry EKG Findings - EKG Comments: EKG Findings:: My EKG interpretation: Ventricular rate 99, sinus rhythm,. 159, QRS 12, QTc 44. No OH prolongation, no QTC prolongation, no ST or T-wave changes noted. . Overall, this EKG is unremarkable Medical Decision Making - Medical Decision Making Was pt. sent in by a medical professional or institution (, PA, TOOL CARRIER, urgent care, hospital, or intermediate...) When possible be specific @ -No Did you speak to anyone other than the patient for history (EMS, parent, family, police, friend...)? What history was obtained from this source @ -No Did you review nursing and triage notes (agree or disagree)? Why? @ -I reviewed and agree with nursing and triage notes Were old charts reviewed (outside hosp., previous admission, EMS record, old EKG, old radiological studies, urgent care reports/EKG's, intermediate records)? Report findings @ -No old charts were reviewed Differential Diagnosis (chest pain, altered mental status, abdominal pain women, abdominal pain men, vaginal bleeding, musculoskeletal, weakness, fever, dyspnea, syncope, headache, dizziness, GI bleed, back pain, seizure, CVA, palpatations, mental health)? @ -FDifferential Chest Pain: Stable Angina, Unstable Angina, STEMI, NSTEMI Aortic Dissection, Pneumothorax, Musculoskeletal, Esophageal Spasm GERD, Cholecystitis, Pancreatitis, Zoster, this is not meant to be an all-inclusive list. EKG interpreted by me (3pts min.). @ -See above X-rays interpreted by me (1pt min.). @ -Chest X-ray is non acute CT interpreted by me (1pt min.). @ -None done U/S interpreted by me (1pt. min.). @ -None done What testing was considered but not performed or refused? (CT, X-rays, U/S, labs)? Why? @ -None What meds were considered but not given or refused? Why? @ -None Did you discuss the management of the patient with other professionals (professionals i.e. , PA, TOOL CARRIER, lab, RT, psych nurse, social work nurse, electrical technology instructor, teacher, fisheries enforcement officer, briefcase sewer)? Give summary @ -No Was smoking cessation discussed for >3mins.? @ -No Was critical care preformed (if so, how long)? @ -No Were there social determinants of health that impacted care today? How? (Homelessness, low income, unemployed, alcoholism, drug addiction, transportation, low edu. Level, literacy, decrease access to med. care, long-term, rehab)? @ -homeless Was there de-escalation of care discussed even if they declined (Discuss DNR or withdrawal of care, Hospice)? DNR status @ -No What co-morbidities impacted this encounter? (DM, HTN, Smoking, COPD, CAD, Cancer, CVA, ARF, Chemo, Hep., AIDS, mental health diagnosis, sleep apnea, morbid obesity)? @ -None Was patient admitted / discharged? Hospital course, mention meds given and ro mary, prescriptions, significant lab abnormalities, going to OR and other pertinent info. @ -53-year-old male presents emergency department for chest pain. Vital signs are stable. Cardiac workup is negative. Patient is notified that his labs and x-ray was negative. He admits to me that he was really upset earlier because at the housing that he is at because of his homelessness they were doing bed checks states that he was unable to rest because he kept waking him up. States that he feels fine and wants to be discharged. She is asymptomatic at bedside. Return precautions discussed. Undiagnosed new problem with uncertain prognosis? @ -No Drug Therapy requiring intensive monitoring for toxicity (Heparin, Nitro, Insulin, Cardizem)? @ -No Were any procedures done? @ -No Diagnosis/symptom? Acute, or Chronic, or Acute on Chronic? Uncomplicated (without systemic symptoms) or Complicated (systemic symptoms)? @ -Chest pain Side effects of treatment? @ -No Exacerbation, Progression, or Severe Exacerbation? @ -No Poses a threat to life or bodily function? How? (Chest pain, [place], [place], pneumonia, PE, COPD, DKA, ARF, appy, cholecystitis, CVA, Diverticulitis, Homicidal, Suicidal, threat to staff... and all critical care pts) @ -No - Lab Data Result diagrams: 09/07/23 05:40 09/07/23 05:40 Lab Results 09/07/23 09/07/23 09/07/23 Range/Units 05:40 05:40 05:40 WBC 12.5 H (3.8-10.6) k/uL RBC 5.57 (4.30-5.90) m/uL Hgb 16.7 (13.0-17.5) gm/dL Hct 48.9 (39.0-53.0) % MCV 87.8 (80.0-100.0) fL MCH 29.9 (25.0-35.0) pg MCHC 34.1 (31.0-37.0) g/dL RDW 14.0 (11.5-15.5) % Plt Count 240 (150-450) k/uL MPV 8.4 Neutrophils % 55 % Lymphocytes % 33 % Monocytes % 6 % Eosinophils % 2 % Basophils % 1 % Neutrophils # 6.9 (1.3-7.7) k/uL Lymphocytes # 4.1 (1.0-4.8) k/uL Monocytes # 0.8 (0-1.0) k/uL Eosinophils # 0.3 (0-0.7) k/uL Basophils # 0.1 (0-0.2) k/uL PT 10.0 (10.0-12.5) sec INR 0.9 (<1.2) APTT 25.4 (22.0-30.0) sec Sodium 137 (137-145) mmol/L Potassium 4.5 (3.5-5.1) mmol/L Chloride 102 (98-107) mmol/L Carbon Dioxide 22 (22-30) mmol/L Anion Gap 13 mmol/L BUN 20 (9-20) mg/dL Creatinine 1.08 (0.66-1.25) mg/dL Est GFR (CKD-EPI)AfAm 89 (>60 ml/min/1.73 sqM) Est GFR (CKD-EPI)NonAf 77 (>60 ml/min/1.73 sqM) Glucose 201 H (74-99) mg/dL Calcium 9.2 (8.4-10.2) mg/dL Magnesium 1.9 (1.6-2.3) mg/dL Total Bilirubin 0.6 (0.2-1.3) mg/dL AST 34 (17-59) U/L ALT 35 (4-49) U/L Alkaline Phosphatase 79 (38-126) U/L Troponin I (0.000-0.034) ng/mL Total Protein 7.0 (6.3-8.2) g/dL Albumin 4.1 (3.5-5.0) g/dL 09/07/23 Range/Units 05:40 WBC (3.8-10.6) k/uL RBC (4.30-5.90) m/uL Hgb (13.0-17.5) gm/dL Hct (39.0-53.0) % MCV (80.0-100.0) fL MCH (25.0-35.0) pg MCHC (31.0-37.0) g/dL RDW (11.5-15.5) % Plt Count (150-450) k/uL MPV Neutrophils % % Lymphocytes % % Monocytes % % Eosinophils % % Basophils % % Neutrophils # (1.3-7.7) k/uL Lymphocytes # (1.0-4.8) k/uL Monocytes # (0-1.0) k/uL Eosinophils # (0-0.7) k/uL Basophils # (0-0.2) k/uL PT (10.0-12.5) sec INR (<1.2) APTT (22.0-30.0) sec Sodium (137-145) mmol/L Potassium (3.5-5.1) mmol/L Chloride (98-107) mmol/L Carbon Dioxide (22-30) mmol/L Anion Gap mmol/L BUN (9-20) mg/dL Creatinine (0.66-1.25) mg/dL Est GFR (CKD-EPI)AfAm (>60 ml/min/1.73 sqM) Est GFR (CKD-EPI)NonAf (>60 ml/min/1.73 sqM) Glucose (74-99) mg/dL Calcium (8.4-10.2) mg/dL Magnesium (1.6-2.3) mg/dL Total Bilirubin (0.2-1.3) mg/dL AST (17-59) U/L ALT (4-49) U/L Alkaline Phosphatase (38-126) U/L Troponin I <0.012 (0.000-0.034) ng/mL Total Protein (6.3-8.2) g/dL Albumin (3.5-5.0) g/dL Disposition Clinical Impression: Chest pain Disposition: HOME SELF-CARE Condition: Good Instructions (If sedation given, give patient instructions): Chest Pain (ED) Is patient prescribed a controlled substance at d/c from ED?: No Referrals: Charlie Bates MD [Primary Care Provider] - 1-2 days Time of Disposition: 07:34
[2023-09-07] MEDS ORDERED: ACETAMINOPHEN TAB 500 MG TAB PO STA (06:09)
[2023-09-07 06:12] LABS: Basophils # (A) 0.1 k/uL (0-0.2); Basophils % (A) 1 %; Eosinophils # (A) 0.3 k/uL (0-0.7); Eosinophils % (A) 2 %; HCT 48.9 % (39.0-53.0); HGB 16.7 gm/dL (13.0-17.5); Lymphocytes # (A) 4.1 k/uL (1.0-4.8); Lymphocytes % (A) 33 %; MCH 29.9 pg (25.0-35.0); MCHC 34.1 g/dL (31.0-37.0); MCV 87.8 fL (80.0-100.0); Mean Platelet Volume 8.4; Monocytes # (A) 0.8 k/uL (0-1.0); Monocytes % (A) 6 %; Neutrophils # (A) 6.9 k/uL (1.3-7.7); Neutrophils % (A) 55 %; Platelet Count 240 k/uL (150-450); RBC 5.57 m/uL (4.30-5.90); WBC 12.5 k/uL (3.8-10.6)
[2023-09-07 06:19] LABS: ALT 35 U/L (4-49); AST 34 U/L (17-59); African American GFR (CKD) 89 (>60 ml/min/1.73 sqM); Albumin 4.1 g/dL (3.5-5.0); Alkaline Phosphatase 79 U/L (38-126); Anion Gap 13 mmol/L; Blood Urea Nitrogen 20 mg/dL (9-20); Calcium 9.2 mg/dL (8.4-10.2); Carbon Dioxide 22 mmol/L (22-30); Chloride 102 mmol/L (98-107); Glucose 201 mg/dL (74-99); Magnesium 1.9 mg/dL (1.6-2.3); Non-African American GFR(CKD) 77 (>60 ml/min/1.73 sqM); Potassium 4.5 mmol/L (3.5-5.1); Sodium 137 mmol/L (137-145); Total Bilirubin 0.6 mg/dL (0.2-1.3)
[2023-09-07 06:50] LABS: INR 0.9 (<1.2); Partial Thromboplastin Time 25.4 sec (22.0-30.0)
--- NOTE | 2023-09-07 07:11 | XR ---
EXAMINATION TYPE: XR chest 2V DATE OF EXAM: 09/07/2023 6:25 AM CLINICAL INDICATION:Male, 53 years old with history of Chest Pain; [facility] COMPARISON: Chest radiographs from 12/23/2017 TECHNIQUE: XR chest 2V Frontal and lateral views of the chest. FINDINGS: Lungs/Pleura: There is no evidence of pleural effusion, focal consolidation, or pneumothorax. Pulmonary vascularity: Unremarkable. Heart/mediastinum: Cardiomediastinal silhouette is unremarkable. Musculoskeletal: No acute osseous pathology. IMPRESSION: No acute cardiopulmonary disease/process.
[2023-09-07 07:41] VITALS: BP 134/91; PULSE 68; TEMP 97.9
== END 2023-09-07 07:44 | disposition home or self-care (01) ==
LOC: EC 05:08
DX: I44.4 Left anterior fascicular block (principal); E78.5 Hyperlipidemia, unspecified; I10 Essential (primary) hypertension; F41.9 Anxiety disorder, unspecified; F32.A Depression, unspecified; F12.90 Cannabis use, unspecified, uncomplicated; Z79.899 Other long term (current) drug therapy
CPT/HCPCS: 36415; 71046; 80053; 83735; 84484; 85025; 85610; 85730; 99285